=== PATIENT | female | born 1960 | race Hispanic/Latino ===

== ENCOUNTER 2018-01-14 12:32 | Emergency (ER) | payer BC ==
[2018-01-14 12:47] VITALS: BMI 22.1
[2018-01-14 12:52] VITALS: PULSE 70; RESP 20; TEMP 98.1
--- NOTE | 2018-01-14 14:02 | CT ---
PROCEDURE: CT HEAD WITHOUT CONTRAST. HISTORY: Persistent headache s/p head injury 4 days ago COMPARISON: None available. TECHNIQUE: Axial computed tomography images were obtained through the head/brain without intravenous contrast. Coronal and sagittal reconstructed images. Radiation dose: Total exam DLP = 920.08 mGy-cm. This CT exam was performed using one or more of the following dose reduction techniques: Automated exposure control, adjustment of the mA and/or kV according to patient size, and/or use of iterative reconstruction technique. FINDINGS: HEMORRHAGE: No intracranial hemorrhage. BRAIN: No mass effect or edema. No atrophy or chronic microvascular ischemic changes. VENTRICLES: Unremarkable. No hydrocephalus. CALVARIUM: Unremarkable. PARANASAL SINUSES: Unremarkable as visualized. No significant inflammatory changes. MASTOID AIR CELLS: Unremarkable as visualized. No inflammatory changes. OTHER FINDINGS: None. IMPRESSION: No acute intracranial abnormalities. No significant findings to account for the clinical presentation.
[2018-01-14 14:14] VITALS: BP 106/67
--- NOTE | 2018-01-14 14:33 | C.PDOC ---
Time Seen by Provider: 01/14/18 13:06 Chief Complaint (Nursing): Trauma History Per: Patient Injury Occurred (Timing): Days Ago: (4) Patient States: Other (Hit head against object) Description Of Injury (Context): Pt hit her head against object. c/o persistent headache/dizziness. Severity: Moderate Loss Of Consciousness: No Additional History Per: Prior Records Past Medical History Reviewed: Historical Data, Nursing Documentation, Vital Signs Vital Signs: Last Vital Signs Temp 98.1 F 01/14/18 12:47 Pulse 70 01/14/18 12:47 Resp 20 01/14/18 12:47 BP 106/67 01/14/18 14:14 Pulse Ox - Medical History PMH: Hypothyroidism, Malignancy (Breast) Other Surgeries: Lumpectomy Family History: States: Unknown Family Hx - Social History Hx Alcohol Use: Yes Hx Substance Use: No - Immunization History Hx Tetanus Toxoid Vaccination: No Hx Influenza Vaccination: Yes Hx Pneumococcal Vaccination: No Review Of Systems Except As Marked, All Systems Reviewed And Found Negative. Constitutional: Negative for: Fever, Weakness Cardiovascular: Negative for: Chest Pain Respiratory: Negative for: Shortness of Breath Gastrointestinal: Negative for: Vomiting, Abdominal Pain Neurological: Positive for: Headache, Dizziness. Negative for: Weakness, Numbness, Seizures Physical Exam - Physical Exam Appears: Non-toxic, No Acute Distress Skin: Normal Color, Warm, Dry Head: No Laceration, Other (Right Parietal scalp contusion) Eye(s): bilateral: Normal Inspection, PERRL, EOMI Neck: Normal ROM, No Midline Cervical Tenderness, No Step Off Deformity, Supple Cardiovascular: Rhythm Regular Respiratory: Normal Breath Sounds, No Accessory Muscle Use Gastrointestinal/Abdominal: Soft, No Tenderness Extremity: Normal ROM Neurological/Psych: Oriented x3, Normal Speech, Normal Cognition, No Cerebellar Signs, Normal Motor, Normal Sensation ED Course And Treatment - CT Scan/US Head CT Other Rad Studies (CT/US): Read By Radiologist, Radiology Report Reviewed CT/US Interpretation: IMPRESSION: No acute intracranial abnormalities. No significant findings to account for the clinical presentation. Reassessment Condition: Improved Disposition Counseled Patient/Family Regarding: Studies Performed, Diagnosis, Need For Followup - Disposition Disposition: HOME/ ROUTINE Disposition Time: 14:34 Condition: STABLE Additional Instructions: Follow up with your doctor. Avoid hitting your head. Rest. Return to the ER if you develop weakness, vomiting, worsening of symptoms or if you have any other concerns. Instructions: Concussion, Adult (DC) - Clinical Impression Clinical Impression: Head concussion
== END 2018-01-14 15:05 | disposition home or self-care (01) ==
LOC: C.ER 12:32
DX: S06.0X9A Concussion with loss of consciousness of unspecified duration, initial encounter (principal); W22.8XXA Striking against or struck by other objects, initial encounter; E03.9 Hypothyroidism, unspecified